=== PATIENT | female | born 1990 | race African-American/Black ===

== ENCOUNTER 2024-12-28 12:17 | Day surgery (SDC) | payer OTHER ==
[2024-12-28] MEDS: IRON SUCROSE INJECTION 200 MG in SODIUM CHLORIDE 100 ML IVPB ONE (12:38)
[2024-12-28 13:40] VITALS: TEMP 98.7
[2024-12-28 13:42] VITALS: BP 107/53; PULSE 94; RESP 18
== END 2024-12-28 13:35 | disposition home or self-care (01) ==
LOC: JONCNONCHE 12:17
PROVIDERS: ATTEND Internal Medicine Hematology & Oncology
PROC: 3E033GC Introduction of Other Therapeutic Substance into Peripheral Vein, Percutaneous Approach (ICD-10-PCS; principal; 2024-12-28)
DX: D50.9 Iron deficiency anemia, unspecified (principal)
CPT/HCPCS: 96365; J1756

== ENCOUNTER 2025-01-04 12:30 | Day surgery (SDC) | payer OTHER ==
[2025-01-04] MEDS: IRON SUCROSE INJECTION 200 MG in SODIUM CHLORIDE 100 ML IVPB ONE (12:47)
[2025-01-04 15:56] VITALS: BP 110/67; PULSE 94; RESP 18; TEMP 98.5
== END 2025-01-04 13:45 | disposition home or self-care (01) ==
LOC: J7W 12:30 → JONCNONCHE 12:30
PROVIDERS: ATTEND Internal Medicine Hematology & Oncology
PROC: 3E033GC Introduction of Other Therapeutic Substance into Peripheral Vein, Percutaneous Approach (ICD-10-PCS; principal; 2025-01-04)
DX: D50.9 Iron deficiency anemia, unspecified (principal)
CPT/HCPCS: J1756